=== PATIENT | female | born 1975 | race Asian ===

== ENCOUNTER 2017-01-25 21:09 | Emergency (ER) | payer SELFPAY ==
[2017-01-25 21:15] VITALS: RESP 16; TEMP 97.5
--- NOTE | 2017-01-25 21:50 | EDPHY ---
H & P Stated Complaint: L knee injury, fx per UC XR, needs further immobilization Time Seen by Provider: 01/25/17 21:31 HPI/ROS: CHIEF COMPLAINT: Knee pain HISTORY OF PRESENT ILLNESS: Patient is a 41-year-old female sent from the urgent care with a "broken leg". 2 days ago jumped up into her arms and she tried to catch him that she twisted her left knee. She had immediate pain. She has not been able to bear weight since then but has been using crutches and a straight leg brace. Today they decided to go to the urgent care where x-rays were performed and she was told that she had a broken leg and needed to come to the emergency department for further management. I have reviewed the outside films and she has a nondisplaced transverse comminuted tibial plateau fracture that does involve the articular surface. This does not appear to be any depression. There is a small medial chip that is slightly displaced. The patient has normal pulses and sensation distally. She denies any other injuries. REVIEW OF SYSTEMS: Constitutional: denies: chills, fever, recent illness, recent injury EENTM: denies: blurred vision, double vision, nose congestion Respiratory: denies: cough, shortness of breath Cardiac: denies: chest pain, irregular heart rate, lightheadedness, palpitations Gastrointestinal/Abdominal: denies: abdominal pain, diarrhea, nausea, vomiting, blood streaked stools Genitourinary: denies: dysuria, frequency, hematuria, pain Musculoskeletal: See HPI Skin: denies: lesions, rash, jaundice, bruising Neurological: denies: headache, numbness, paresthesia, tingling, dizziness, weakness Hematologic/Lymphatic: denies: blood clots, easy bleeding, easy bruising Immunologic/allergic: denies: HIV/AIDS, transplant EXAM: GENERAL: Well-appearing, well-nourished and in no acute distress. HEAD: Atraumatic, normocephalic. EYES: Pupils equal round and reactive to light, extraocular movements intact, sclera anicteric, conjunctiva are normal. ENT: TMs normal, nares patent, oropharynx clear without exudates. Moist mucous membranes. NECK: Normal range of motion, supple without lymphadenopathy or JVD. LUNGS: Breath sounds clear to auscultation bilaterally and equal. No wheezes rales or rhonchi. HEART: Regular rate and rhythm without murmurs, rubs or gallops. ABDOMEN: Soft, nontender, normoactive bowel sounds. No guarding, no rebound. No masses appreciated. BACK: No CVA tenderness, no spinal tenderness, step-offs or deformities EXTREMITIES: Left knee pain, mild swelling, tenderness. NEUROLOGICAL: Cranial nerves II through XII grossly intact. Normal speech, normal gait. 5/5 strength, normal movement in all extremities, normal sensation PSYCH: Normal mood, normal affect. SKIN: Warm, dry, normal turgor, no visible rashes or lesions. Source: Patient Exam Limitations: No limitations - Personal History LMP (Females 10-55): 1-7 Days Ago - Medical/Surgical History Hx Asthma: No Hx Chronic Respiratory Disease: No Hx Diabetes: No Hx Cardiac Disease: No Hx Renal Disease: No Hx Cirrhosis: No Hx Alcoholism: No Other PMH: denies - Family History Significant Family History: No pertinent family hx - Social History Smoking Status: Never smoked Alcohol Use: Sober Drug Use: None Constitutional: Initial Vital Signs Temperature (C) 36.4 C 01/25/17 21:12 Heart Rate 87 01/25/17 21:12 Respiratory Rate 16 01/25/17 21:12 Blood Pressure 132/50 H 01/25/17 21:12 O2 Sat (%) 97 01/25/17 21:12 O2 Delivery Mode Room Air Allergies/Adverse Reactions: No Known Allergies Allergy (Unverified 01/25/17 21:15) Home Medications: Medication Instructions Recorded Hydrocodone/APAP 5/325 [Deridder 1 - 2 each PO Q4 PRN #14 tab 01/25/17 5/325] Medical Decision Making ED Course/Re-evaluation: I have reviewed the x-rays, see HPI, I will consult Ortho. Likely she will simply need to be put back in the brace and he was her crutches until she can follow-up. 10:00 p.m. I discussed the case with Dr. Quiros who agrees with straight leg brace, nonweightbearing and follow up later this week. The patient understands and agrees that this plan. She declines pain medication prescription. We discussed indications for returning. Differential Diagnosis: Partial list of the Differential diagnosis considered include but were not limited to; tibial plateau fracture, patella fracture, dislocation and although unlikely based on the history and physical exam, I also considered vascular injury, nerve injury. I discussed these differential diagnoses and the plan with the patient as well as the usual and expected course. The patient understands that the diagnosis is provisional and that in medicine we are not always correct and that further workup is often warranted. Usual and customary warnings were given. All of the patient's questions were answered. The patient was instructed to return to the emergency department should the symptoms at all worsen or return, otherwise to followup with the physician as we discussed. Departure - Departure Disposition: Home, Routine, Self-Care Clinical Impression: Tibial plateau fracture, left Qualifiers: Encounter type: initial encounter Fracture type: closed Qualified Code(s): S82.142A - Displaced bicondylar fracture of left tibia, initial encounter for closed fracture Condition: Fair Instructions: Leg Fracture (ED) Referrals: Ivonne Marks MD [Medical Doctor] - 5-7 days, call for appt. Prescriptions: Hydrocodone/APAP 5/325 [Deridder 5/325] 1 - 2 each PO Q4 PRN #14 tab PRN Reason: Pain, Mild
[2017-01-25 22:23] VITALS: BP 101/56; PULSE 62; O2SAT 96
== END 2017-01-25 22:28 | disposition home or self-care (01) ==
DX: S82.142A Displaced bicondylar fracture of left tibia, initial encounter for closed fracture (principal); X58.XXXA Exposure to other specified factors, initial encounter